=== PATIENT | male | born 1985 | race African-American/Black ===

== ENCOUNTER 2017-12-29 12:45 | Emergency (ER) | payer OTHER ==
[2017-12-29 12:55] VITALS: BP 143/97; BMI 24.2
--- NOTE | 2017-12-29 12:57 | DR.SCROTAL ---
HPI - Time Seen Time seen: 12:55 - Complaint Chief Complaint Doctors Comments: Patient presents with complaint of bilateral testicular pain R>L. He states that on eight days ago he lifted two lawn movers to put on the back of a truck. Shortly thereafter started with testicular pain. Initially he noticed some swelling. He was evaluated by health personnel at the [facility]. PMH - PMH Past Surgical History: No ROS - Review of Systems Eyes: No Symptoms Reported ENTM: No Symptoms Reported Respiratoy: No Symptoms Reported Cardiovascular: No Symptoms Reported Gastrointestinal/Abdominal: No Symptoms Reported Genitourinary: See HPI, Pain (testicular R>L) Neurological: No Symptoms Reported Musculoskeletal: No Symptoms Reported Integumentary: No Symptoms Reported Hematologic/Lymphatic: No Symptoms Reported Endocrine: No Symptoms Reported Psychiatric: No Symptoms Reported All Other Systems: Reviewed and Negative PE - Vital Signs Vitals: Temperature 98.9 F Pulse Rate 97 Respiratory Rate 20 Blood Pressure 143/97 O2 Sat by Pulse Oximetry 109 - General Limitations: No Limitations General Appearance: Alert, In No Apparent Distress - Head Head Exam: Normal Inspection, Atraumatic - Eyes Eye exam: Normal Appearance, PERRL, EOMI - ENT ENT Exam: Normal Exam - Neck Neck Exam: Normal Inspection, Full ROM - Chest Chest Inspection: Normal Inspection - Respiratory Respiratory Exam: Normal Lung Sounds Bilat Respiratory Exam: Bilateral Clear to Auscultation - Cardiovascular Cardiovascular Exam: Regular Rate, Normal Rhythm - Abdominal Exam Abdominal Exam: Normal Inspection Abdominal Tenderness: negative: RUQ, RLQ, LUQ, LLQ, Epigastrium, Suprapubic, Diffuse, Mild, Moderate, Severe, Other - Rectal Rectal Exam: Deferred - Genitourinary Exam: Male: Testicular Tenderness (Right). negative: Scrotal Swelling, Penile Swelling, Inguinal Hernial Scrotal Exam: Normal: Bilateral - Extremities Extremities Exam: Normal Inspection, Full ROM - Back Back Exam: Normal Inspection, Full ROM - Neurological Neurological Exam: Alert, Oriented X3, CN II-XII Intact - Psychiatric Psychiatric Exam: Normal Affect - Skin Skin Exam: Warm, Dry Course - Reevaluation 1st: Unchanged ROR - XRAY XRAY Interpreted by: Radiologist (Scrotal US:Findings coal the left testicle measures 4.12x2.1x2.42 cm without mass. The right testicle measures 4.9x2.09x3cm without mass. There is no hydrocele. The epididymis is unremarkable. There is symmetrical good color Doppler blood flow to each testicle. Impression: negative) - Diagnosis Discharge Problem: Negative Scrotal Ultrasound - Discharge Plan Condition: Stable - Follow ups/Referrals Follow ups/Referrals: Misc [Primary Care Provider] - 3 days - Instructions
[2017-12-29] MEDS ORDERED: TORADOL 60 MG VIAL IM ONE (12:59)
[2017-12-29] MEDS ORDERED: TORADOL 60 MG VIAL ONE (13:00)
--- NOTE | 2017-12-29 14:19 | US ---
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 The right testicle measur es 4.9 x 2.09 x 3 cm without mass. There is no hydrocele. The epididymis is unremarkable. There is sy mmetrical good color Doppler blood flow to each testicle. Impression: Negative Reported By:
== END 2017-12-29 14:59 | disposition home or self-care (01) ==
LOC: ER 12:50
DX: N50.819 Testicular pain, unspecified (principal)
CPT/HCPCS: 76870; 96372; 99283; J1885